=== PATIENT | female | born 1940 | race Caucasian/White ===

== ENCOUNTER 2022-11-24 09:52 | Outpatient (OUT) | payer MEDICARE, SELFPAY ==
--- NOTE | 2022-11-24 09:59 | ECG_ITS ---
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
[2022-11-24 11:32] LABS: Basophils Percent Auto 0.2 % (0.2-2.0); Eosinophils Absolute Auto 0.1 10^3/uL (0.0-0.7); Eosinophils Percent Auto 1.6 % (0.9-7.0); Hematocrit 33.7 % (36.0-48.0); Immature Granulocytes Abs Auto 0.04 10^3/uL (0.00-0.03); Immature Granulocytes Pct Auto 0.5 % (0.0-0.5); Lymphocytes Absolute Auto 1.3 10^3/uL (1.2-3.8); Lymphocytes Percent Auto 15.1 % (20.5-60.0); Mean Corpuscular HGB Conc 32.6 g/dL (29.9-35.2); Mean Platelet Volume 9.6 fL (9.5-13.5); Monocytes Absolute Auto 0.8 10^3/uL (0.3-0.8); Monocytes Percent Auto 8.8 % (1.7-12.0); Neutrophils Absolute Auto 6.3 10^3/uL (1.4-6.5); Neutrophils Percent Auto 73.8 % (43.0-75.0); Platelet Count 278 10^3/uL (150-450); Red Blood Count 3.44 10^6/uL (4.20-5.40); Red Cell Distribution Width 13.2 % (11.0-15.0); White Blood Count 8.6 10^3/uL (4.0-11.0)
== END 2022-11-24 09:53 | disposition home or self-care (01) ==
LOC: PST 09:55
PROVIDERS: PCP Family Medicine; Visit Provider Otolaryngology
DX: Z01.812 Encounter for preprocedural laboratory examination (principal); Z01.810 Encounter for preprocedural cardiovascular examination; D49.0 Neoplasm of unspecified behavior of digestive system; R00.1 Bradycardia, unspecified; R94.31 Abnormal electrocardiogram [ECG] [EKG]
CPT/HCPCS: 36415; 85025; 93005

== ENCOUNTER 2022-11-29 08:44 | Day surgery (SDC) | payer MEDICARE, SELFPAY ==
[2022-11-24 10:36] VITALS: BP 105/53; PULSE 50; RESP 18; TEMP 36.1; O2SAT 97; BMI 19.0
[2022-11-29] VITALS (11 sets, daily range): BP systolic 122–137; BP diastolic 53–78; PULSE 58–83; RESP 15–25; TEMP 36.5–36.7; O2SAT 94–100; BMI 18.9
--- NOTE | 2022-11-29 | OP_ITS ---
OPERATION DATE: ??11/29/2022 PRIMARY CARE PHYSICIAN:? Gerald Lozada M.D. SURGEON:? Melissa Ledezma M.D. PREOPERATIVE DIAGNOSIS:? Tongue base mass. POSTOPERATIVE DIAGNOSIS:? 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 PROCEDURE:? Direct laryngoscopy and biopsy. ANESTHESIA:? General endotracheal. COMPLICATIONS:? None. FINDINGS:? Exophytic mass involving the bilateral tongue base, glottic surface of the epiglottis, the left arytenoids and the left piriform sinus. Frozen section c/w SCCA INDICATIONS:? This 82-year-old was being evaluated for a six month history of dysphagia and was found to have a mass of the tongue base on CT scan.? On examination in the office, the above tongue base mass was noted, and the patient was brought to the OR for direct laryngoscopy and biopsy for presumed squamous cell carcinoma.? PROCEDURE:? Patient identified in the holding area and taken back to the OR where she was placed in the supine position.? After induction of general endotracheal anesthesia, the table was turned, the shoulder roll placed and a tooth guard put over the patient?s gums.? A laryngoscope was used to visualize the tongue mass, tonsillar fossae, piriform sinuses, supraglottic larynx and endolarynx.? The above findings were noted.? Two biopsies were made with an upbiting cup forcep and sent for frozen section, which proved consistent with squamous cell carcinoma.? Two additional biopsies were also made to ensure that there was adequate tissue for a diagnosis and testing for p16.? There was a small amount of self-limited bleeding, and the patient was awakened and taken to the recovery room in good condition. FLAVIO
[2022-11-29] MEDS: LACTATED RINGER'S SOLUTION 1,000 ML 50 ML IV (09:00)
== END 2022-11-29 11:47 | disposition home or self-care (01) ==
PROVIDERS: PCP Family Medicine; Visit Provider Otolaryngology
PROC: (CPT 31535; principal; 2022-11-29 09:50)
DX: C01 Malignant neoplasm of base of tongue (principal); C32.9 Malignant neoplasm of larynx, unspecified; C13.9 Malignant neoplasm of hypopharynx, unspecified; I10 Essential (primary) hypertension; E78.5 Hyperlipidemia, unspecified; F17.210 Nicotine dependence, cigarettes, uncomplicated; R63.4 Abnormal weight loss; Z68.1 Body mass index [BMI] 19.9 or less, adult; J44.9 Chronic obstructive pulmonary disease, unspecified; Z79.82 Long term (current) use of aspirin; Z79.899 Other long term (current) drug therapy
CPT/HCPCS: 31535; 36415; 88305; 88341; 88342; J2704